=== PATIENT | female | born 1995 | race Caucasian/White ===

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

== ENCOUNTER 2018-07-07 02:45 | Emergency (ER) | payer SELFPAY ==
[~2018-07-07] VITALS: Ht 172.7 cm; Wt 54.5 kg
[2018-07-07 02:45] VITALS: TEMP 98.9
[~2018-07-07 02:45] MED LIST changes: +CEPHALEXIN500 M1 PO; +PYRIDIUM200 M1 PO
[2018-07-07 04:55] VITALS: BP 106/72; PULSE 78
== END 2018-07-07 04:57 | disposition home or self-care (01) ==
LOC: COL.ER 02:45
DX: F10.129 Alcohol abuse with intoxication, unspecified (principal); R11.2 Nausea with vomiting, unspecified; Y90.6 Blood alcohol level of 120-199 mg/100 ml
CPT/HCPCS: J2405; J2550; J7030

== ENCOUNTER 2018-07-08 00:34 | Emergency (ER) | payer SELFPAY ==
[~2018-07-08] VITALS: Ht 172.7 cm; Wt 50.0 kg
[2018-07-08 00:34] VITALS: TEMP 96.9
[2018-07-08 00:45] LABS: HEMATOCRIT 39.6 % (35.0-45.0); HEMOGLOBIN 12.7 g/dl (12.0-15.0); MEAN CELL VOLUME 95 fl (80.0-95.0); MEAN CORPUSCULAR HEMOGLOBIN 31 pg (26.0-32.0); MEAN CORPUSCULAR HGB CONC 32 g/dl (33.0-37.0); MEAN PLATELET VOLUME 9.7 fl (7.4-10.4); PLATELET COUNT 365 K/mm3 (130-400); RED BLOOD COUNT 4.15 M/mm3 (4.10-5.30); REDCELL DISTRIBUTION WIDTH-CV 12.8 % (11.5-14.5)
[2018-07-08 00:56] LABS: ALANINE AMINOTRANSFERASE 58 U/L (9-52); ALKALINE PHOSPHATASE 47 U/L (50-136); ANION GAP 19 mmol/L (7-16); AST,SGOT 91 U/L (15-37); BILIRUBIN,TOTAL 0.4 mg/dL (0.0-1.0); BLOOD UREA NITROGEN 8 mg/dL (7-17); CALCIUM 8.3 mg/dL (8.4-10.2); CARBON DIOXIDE 17 mmol/L (22-30); CHLORIDE 103 mmol/L (98-107); CREATININE, serum 1.18 mg/dL (0.52-1.25); GLUCOSE 360 mg/dL (74-106); SODIUM 139 mmol/L (137-145)
[2018-07-08 01:05] VITALS: BP 89/57; PULSE 66
[2018-07-08 01:07] LABS: ACETAMINOPHEN < 10 ug/mL (10-30); ALCOHOL(ethanol),MEDICAL < 10 mg/dL; POTASSIUM 2.7 mmol/L (3.4-5.0); SALICYLATE < 1.0 mg/dL
[2018-07-08 01:14] LABS: HCG,QUANTITATIVE 97 mIU/mL (0-5)
[2018-07-08 01:29] LABS: BAND 10 % (0-10); LYMPHOCYTE 45 % (20.0-51.0); NEUTROPHILS 39 % (42.0-75.2)
[2018-07-08 01:30] LABS: HYPOCHROMIA 1+; OVALOCYTES 1+; PLATELET ESTIMATE NORMAL (NORMAL)
[2018-07-08 01:31] LABS: TEAR DROP CELLS 1+
== END 2018-07-08 02:37 | disposition short-term general hospital (02) ==
LOC: COL.ER 00:34
PROVIDERS: Emergency Medicine
DX: T14.91XA Suicide attempt, initial encounter (principal); I46.9 Cardiac arrest, cause unspecified; F32.9 Major depressive disorder, single episode, unspecified
CPT/HCPCS: J0330; J3010; J3480; J7030; Q9967